=== PATIENT | male | born 1965 | race Caucasian/White ===

== ENCOUNTER 2018-06-01 16:34 | Inpatient (IN) | payer MEDICAID ==
[2018-06-01] MEDS ORDERED: Sodium Chloride 0.9% 10 ML Syringe FLUSH PRN ×2 (16:39→20:39)
[2018-06-01] MEDS ORDERED: Cefepime 2 GM in Sodium Chloride 0.9% 50 ML IV ONE (16:39)
[2018-06-01] MEDS ORDERED: Lactated Ringers 1,000 ML IV ONE ×2 (16:43→19:14)
[2018-06-01] MEDS ORDERED: metroNIDAZOLE/Normal Saline 500 MG in Premix Bag 1 BAG IV ONE (17:34)
--- NOTE | 2018-06-01 17:49 | CRLCR ---
HISTORY: Hypoxia. FINDINGS: Two AP views of the chest are provided. There are no previous studies for comparison. Patchy airspace opacity is seen in the right lower lung suspicious for pneumonia. The upper portion of the right lung and left lung are clear. No evidence for pneumothorax. Cardiac silhouette size is within normal limits. IMPRESSION: Findings suspicious for pneumonia in the right lower lung. Dictated by Jarad Sol MD @ Jun 01 2018 5:46PM Signed by Dr. Jarad Sol @ Jun 01 2018 5:47PM
[2018-06-01] MEDS ORDERED: Sodium Chloride 0.9% 80 ML IV ONE (17:50)
[2018-06-01] MEDS ORDERED: Sodium Chloride 0.9% 10 ML Syringe FLUSH ONE (17:50)
[2018-06-01] MEDS ORDERED: Lactated Ringers 1,000 ML IV SCH (18:00)
[2018-06-01] MEDS ORDERED: Iopamidol 612 MG/ML 100 ML Bottle IV SCH (18:00)
[2018-06-01] MEDS ORDERED: Azithromycin 500 MG in Sodium Chloride 0.9% 250 ML IV ONE (18:41)
--- NOTE | 2018-06-01 19:05 | CRLCT ---
TECHNIQUE: IV contrast-enhanced CT chest, abdomen, and pelvis. 100 mL Isovue-300 injected. INDICATION: Hypotension, sepsis. FINDINGS: Chest: Extensive consolidation in the right lower lobe and areas of patchy consolidation and interstitial density in the right middle lobe and left upper lobe. Findings are compatible with pneumonia. There is diffuse emphysema throughout both lungs. Several mildly prominent, likely reactive mediastinal lymph nodes. Abdomen and pelvis: The gallbladder has an unusual appearance. The woman has slightly higher density than bile and there is a thin rim of higher density within the lumen surrounded by a rind of fluid density. This could either be due to a large stone filling the entire gallbladder or to gallbladder wall mucosal hyperenhancement and thickening. Gallstone is favored. Gallbladder ultrasound is recommended. No biliary dilation. Liver, spleen, pancreas, adrenal glands normal. Prominent extrarenal pelvis in the right kidney, a normal variant. Kidneys are otherwise normal. No bowel obstruction. Mild colonic diverticulosis. No diverticulitis. No adenopathy, free air or free fluid. No abscess. IMPRESSION: 1. Multi focal pneumonia with extensive consolidation of the right lower lobe. 2. Emphysema. 3. Gallbladder wall thickening versus large gallstone. Recommend gallbladder ultrasound for further evaluation. Dictated by Zacarias Pena MD @ 06/01/2018 7:03:03 PM Dictated by: Zacarias Pena MD @ 06/01/2018 19:03:08 (Electronically Signed)
--- NOTE | 2018-06-01 19:15 | EDM.PDOC ---
ED HPI GENERAL MEDICAL PROBLEM - General Chief Complaint: General Stated Complaint: [facility]IA [facility] Time Seen by Provider: 06/01/18 16:50 Source of Information: Reports: Patient History Limitations: Reports: No Limitations - History of Present Illness INITIAL COMMENTS - FREE TEXT/NARRATIVE: 53 yo arrives with concerns of dyspnea Reports symptoms seemingly started suddenly last night, mostly shortness of breath and fever. Did have some RLQ abdominal tenderness as well, not taking much PO Coughing up sputum, no blood EMS found him to be tachycardic and intermittently hypotensive with SBPs in the 80s He is a smoker but no formal diagnosis of COPD Reports he is otherwise healthy Neck Pain Score (Numeric/FACES): 4 - Related Data Allergies Allergy/AdvReac Type Severity Reaction Status Date / Time No Known Allergies Allergy Verified 06/01/18 16:39 Home Meds: Home Meds NK [No Known Home Meds] 06/01/18 [History] Past Medical History HEENT History: Reports: Impaired Vision, Other (See Below) Other HEENT History: broken nose Musculoskeletal History: Reports: Fracture - Past Surgical History Neurological Surgical History: Reports: Other (See Below) Other Neurological Surgeries/Procedures: decompression L4-5, s-1 Social & Family History - Tobacco Use Smoking Status *Q: Heavy Tobacco Smoker Years of Tobacco use: 15 Packs/Tins Daily: 1 - Recreational Drug Use Recreational Drug Use: Yes Recreational Drug Type: Reports: Marijuana/Hashish Recreational Drug Use Frequency: Weekly ED ROS GENERAL - Review of Systems Review Of Systems: See Below Constitutional: Reports: Fever HEENT: Reports: No Symptoms Respiratory: Reports: Shortness of Breath, Cough Cardiovascular: Denies: Chest Pain Endocrine: Reports: No Symptoms GI/Abdominal: Reports: Abdominal Pain : Reports: No Symptoms Musculoskeletal: Reports: No Symptoms Skin: Reports: No Symptoms Neurological: Reports: No Symptoms Psychiatric: Reports: No Symptoms Hematologic/Lymphatic: Reports: No Symptoms Immunologic: Reports: No Symptoms ED EXAM, GENERAL - Physical Exam Exam: See Below Free Text/Narrative:: 53 yo presents with concerns of cough, fever, hypotension Also with RLQ pain, unclear significance of this. On arrival her is somnolent but awakens and offers history. Noted to be persistently hypotensive with SBPs in 70s and 80s. Bedside ECHO performed showed normal EF, no pericardial effusion, no RV enlargement Collapsible IVC Administered 2L IVF bolus for presumed septic shock Broad spectrum anti-microbials including cefepime, flagyl, azithromycin of atypical (? legionella give GI symptoms) Remained with persistently lows BPs (80s), continued fluid resuscitation guided by serial IVC ultrasound. Given continued undifferentiated nature of septic shock obtained CT CAP which showed multifocal pneumonia. He is being admitted to ICU for further management. Course - Vital Signs Last Recorded V/S: Last Vital Signs Temp 37.1 C 06/01/18 16:35 Pulse 97 06/01/18 18:52 Resp 23 H 06/01/18 18:52 BP 79/49 L 06/01/18 18:52 Pulse Ox 96 06/01/18 18:52 - Orders/Labs/Meds Orders: Active Orders 24 hr Category Date Time Status Chest Abdomen Pelvis w Cont [CT] Stat Exams 06/01/18 17:35 Taken CULTURE BLOOD [BC] Urgent Lab 06/01/18 16:50 Received CULTURE BLOOD [BC] Urgent Lab 06/01/18 17:00 Received UA W/MICROSCOPIC [URIN] Stat Lab 06/01/18 17:36 Ordered Azithromycin [Zithromax] 500 mg Med 06/01/18 18:41 Active Sodium Chloride 0.9% [Normal Saline] 250 ml IV ONETIME Iopamidol [Isovue-300 (61%)] Med 06/01/18 18:00 Active 100 ml IV . DIRECTED Lactated Ringers [Ringers, Lactated] 1,000 ml Med 06/01/18 18:00 Active IV BOLUS Sodium Chloride 0.9% [Saline Flush] Med 06/01/18 16:39 Active 10 ml FLUSH ASDIRECTED PRN Blood Culture x2 Reflex Set [OM.PC] Urgent Oth 06/01/18 16:40 Ordered Blood Culture x2 Reflex Set [OM.PC] Urgent Oth 06/01/18 17:54 Ordered Saline Lock Insert [OM.PC] Stat Oth 06/01/18 16:40 Ordered Severe Sepsis Onset Time [OM.PC] Stat Oth 06/01/18 16:40 Ordered Medication Orders Lactated Ringer's (Ringers, Lactated) 1,000 mls @ 999 mls/hr IV BOLUS DANAE Last Admin: 06/01/18 17:50 Dose: 999 mls/hr Azithromycin 500 mg/ Sodium (Chloride) 250 mls @ 250 mls/hr IV ONETIME ONE Stop: 06/01/18 19:40 Iopamidol (Isovue-300 (61%)) 100 ml IV . DIRECTED DANAE Last Admin: 06/01/18 18:18 Dose: 100 ml Sodium Chloride (Saline Flush) 10 ml FLUSH ASDIRECTED PRN PRN Reason: Keep Vein Open Last Admin: 06/01/18 16:55 Dose: 10 ml Labs: Laboratory Tests 06/01/18 06/01/18 06/01/18 Range/Units 16:39 16:40 16:40 WBC 12.7 H (4.5-11.0) K/uL RBC 5.04 (4.30-5.90) M/uL Hgb 15.3 H (12.0-15.0) g/dL Hct 46.2 (40.0-54.0) % MCV 92 (80-98) fL MCH 30 (27-31) pg MCHC 33 (32-36) % Plt Count 242 (150-400) K/uL Add Manual Diff Yes Neutrophils % (Manual) 70 H (36-66) % Band Neutrophils % 18 H (5-11) % Lymphocytes % (Manual) 4 L (24-44) % Monocytes % (Manual) 5 (2-6) % Metamyelocytes % 3 % Sodium 133 L (140-148) mmol/L Potassium 4.6 (3.6-5.2) mmol/L Chloride 101 (100-108) mmol/L Carbon Dioxide 24 (21-32) mmol/L Anion Gap 12.6 (5.0-14.0) mmol/L BUN 18 (7-18) mg/dL Creatinine 1.6 H (0.8-1.3) mg/dL Est Cr Clr Drug Dosing 44.19 mL/min Estimated GFR (MDRD) 45 L (>60) Glucose 122 H (74-106) mg/dL Lactic Acid (0.4-2.0) mmol/L Calcium 7.8 L (8.5-10.1) mg/dL Total Bilirubin 1.6 H (0.2-1.0) mg/dL AST 14 L (15-37) U/L ALT 15 (12-78) U/L Alkaline Phosphatase 77 (46-116) U/L Troponin I < 0.017 (0.000-0.056) ng/mL Total Protein 6.5 (6.4-8.2) g/dL Albumin 2.8 L (3.4-5.0) g/dL Globulin 3.7 H (2.3-3.5) g/dL Albumin/Globulin Ratio 0.8 L (1.2-2.2) 06/01/18 Range/Units 16:40 WBC (4.5-11.0) K/uL RBC (4.30-5.90) M/uL Hgb (12.0-15.0) g/dL Hct (40.0-54.0) % MCV (80-98) fL MCH (27-31) pg MCHC (32-36) % Plt Count (150-400) K/uL Add Manual Diff Neutrophils % (Manual) (36-66) % Band Neutrophils % (5-11) % Lymphocytes % (Manual) (24-44) % Monocytes % (Manual) (2-6) % Metamyelocytes % % Sodium (140-148) mmol/L Potassium (3.6-5.2) mmol/L Chloride (100-108) mmol/L Carbon Dioxide (21-32) mmol/L Anion Gap (5.0-14.0) mmol/L BUN (7-18) mg/dL Creatinine (0.8-1.3) mg/dL Est Cr Clr Drug Dosing mL/min Estimated GFR (MDRD) (>60) Glucose (74-106) mg/dL Lactic Acid 4.1 H (0.4-2.0) mmol/L Calcium (8.5-10.1) mg/dL Total Bilirubin (0.2-1.0) mg/dL AST (15-37) U/L ALT (12-78) U/L Alkaline Phosphatase (46-116) U/L Troponin I (0.000-0.056) ng/mL Total Protein (6.4-8.2) g/dL Albumin (3.4-5.0) g/dL Globulin (2.3-3.5) g/dL Albumin/Globulin Ratio (1.2-2.2) Meds: Medications Generic Name Dose Route Start Last Admin Trade Name Freq PRN Reason Stop Dose Admin Lactated Ringer's 1,000 mls @ 999 mls/hr 03/23/19 18:00 06/01/18 17:50 Ringers, Lactated IV 999 mls/hr BOLUS DANAE Administration Azithromycin 500 mg/ Sodium 250 mls @ 250 mls/hr 06/01/18 18:41 Chloride IV 06/01/18 19:40 ONETIME ONE Iopamidol 100 ml 06/01/18 18:00 06/01/18 18:18 Isovue-300 (61%) IV 100 ml . DIRECTED DANAE Administration Sodium Chloride 10 ml 06/01/18 16:39 06/01/18 16:55 Saline Flush FLUSH 10 ml ASDIRECTED PRN Administration Keep Vein Open Discontinued Medications Generic Name Dose Route Start Last Admin Trade Name Freq PRN Reason Stop Dose Admin Cefepime HCl 2 gm/ Sodium 50 mls @ 100 mls/hr 06/01/18 16:39 06/01/18 16:55 Chloride IV 06/01/18 17:08 100 mls/hr STAT ONE Administration Lactated Ringer's 1,000 mls @ 999 mls/hr 06/01/18 16:43 06/01/18 16:45 Ringers, Lactated IV 06/01/18 17:43 999 mls/hr BOLUS ONE Administration Metronidazole 500 mg/ Premix 100 mls @ 100 mls/hr 06/01/18 17:34 06/01/18 17: 49 IV 06/01/18 18:33 100 mls/hr ONETIME ONE Administration Sodium Chloride 80 mls @ 3.5 mls/sec 06/01/18 17:50 06/01/18 18:18 Normal Saline IV 06/01/18 17:51 3 mls/sec ONETIME ONE Administration Sodium Chloride 10 ml 06/01/18 17:50 06/01/18 18:18 Saline Flush FLUSH 06/01/18 17:51 10 ml ONETIME ONE Administration Departure - Departure Time of Disposition: 19:15 Disposition: Admitted As Inpatient 65 Clinical Impression: Septic shock, Acute hypoxemic respiratory failure, Multifocal pneumonia - Discharge Information Referrals: PCP,None [Primary Care Provider] - Critical Care Note - Critical Care Note Total Time (mins): 45 Comments: Critical care time spent evaluating unstable vital signs and undifferentiated shock, bedside cardiac ECHO, multiple repeat bedside ultrasounds to assess volume status and ongoing hypotension, therapies included IVF bolus and broad spectrum anti-microbials. - My Orders Last 24 Hours: My Active Orders 06/01/18 16:39 Sodium Chloride 0.9% [Saline Flush] 10 ml FLUSH ASDIRECTED PRN 06/01/18 16:40 Blood Culture x2 Reflex Set [OM.PC] Urgent Saline Lock Insert [OM.PC] Stat Severe Sepsis Onset Time [OM.PC] Stat 06/01/18 17:35 Chest Abdomen Pelvis w Cont [CT] Stat 06/01/18 17:36 UA W/MICROSCOPIC [URIN] Stat 06/01/18 18:00 Iopamidol [Isovue-300 (61%)] 100 ml IV . DIRECTED Lactated Ringers [Ringers, Lactated] 1,000 ml IV BOLUS 06/01/18 18:41 Azithromycin [Zithromax] 500 mg Sodium Chloride 0.9% [Normal Saline] 250 ml IV ONETIME - Assessment/Plan Last 24 Hours: My Active Orders 06/01/18 16:39 Sodium Chloride 0.9% [Saline Flush] 10 ml FLUSH ASDIRECTED PRN 06/01/18 16:40 Blood Culture x2 Reflex Set [OM.PC] Urgent Saline Lock Insert [OM.PC] Stat Severe Sepsis Onset Time [OM.PC] Stat 06/01/18 17:35 Chest Abdomen Pelvis w Cont [CT] Stat 06/01/18 17:36 UA W/MICROSCOPIC [URIN] Stat 06/01/18 18:00 Iopamidol [Isovue-300 (61%)] 100 ml IV . DIRECTED Lactated Ringers [Ringers, Lactated] 1,000 ml IV BOLUS 06/01/18 18:41 Azithromycin [Zithromax] 500 mg Sodium Chloride 0.9% [Normal Saline] 250 ml IV ONETIME
[2018-06-01] MEDS ORDERED: Norepinephrine 4 MG/4 ML SDV ONE (20:02)
[2018-06-01] MEDS ORDERED: Dextrose 5% in Water 250 ML ONE (20:02)
[2018-06-01] MEDS: Norepinephrine 4 MG in Dextrose 5% in Water 246 ML IV SCH ×2 (20:19)
--- NOTE | 2018-06-01 20:19 | PCM.HP ---
H&P History of Present Illness - General Date of Service: 06/01/18 Admit Problem/Dx: Admission Diagnosis/Problem Admission Diagnosis/Problem Pneumonia Source of Information: Patient, Provider, RN Notes Reviewed History Limitations: Reports: No Limitations - History of Present Illness Initial Comments - Free Text/Narative: Mr. Shanks is a 53-year-old gentleman who is admitted through the emergency department with weakness, cough, hypoxia, and hypotension secondary to pneumonia with sepsis. He's not felt well over the past 2 weeks and has had intermittent right lower quadrant abdominal pain. The last 24 hours he's developed profound weakness, fever, chills, shortness of breath, and cough. Because of progressive symptoms he presented to the emergency department for further evaluation. On assessment he was found to be hypoxic and hypotensive with systolic pressures into the 70s and 80s. White blood cell count is modestly elevated, lactic acid level elevated at 4.1, and evidence of patchy infiltrates noted in the right lung on chest x-ray. CT scan of the chest abdomen and pelvis showed evidence of patchy infiltrates in the lungs as well as possible gallbladder disease. Blood cultures have been obtained and he has received vigorous fluid replacement per sepsis protocol. Despite fluid replacement blood pressures have remained borderline. Oxygen saturations improved initially with low level of supplemental oxygen at 2 L/m via nasal cannula. As he is been in the emergency department he's required higher levels of supplemental oxygen and now has borderline oxygen saturations on 5 L of oxygen via nasal cannula. Antibiotic therapy has been initiated, he received cefepime, metronidazole, and azithromycin. Neck Pain Score (Numeric/FACES): 4 - Related Data Allergies/Adverse Reactions: Allergies Allergy/AdvReac Type Severity Reaction Status Date / Time No Known Allergies Allergy Verified 06/01/18 16:39 Home Medications: Home Meds NK [No Known Home Meds] 06/01/18 [History] Past Medical History HEENT History: Reports: Impaired Vision, Other (See Below) Other HEENT History: broken nose Musculoskeletal History: Reports: Fracture - Past Surgical History Neurological Surgical History: Reports: Other (See Below) Other Neurological Surgeries/Procedures: decompression L4-5, s-1 Social & Family History - Tobacco Use Smoking Status *Q: Heavy Tobacco Smoker Years of Tobacco use: 15 Packs/Tins Daily: 1 - Recreational Drug Use Recreational Drug Use: Yes Recreational Drug Type: Reports: Marijuana/Hashish Recreational Drug Use Frequency: Weekly H&P Review of Systems - Review of Systems: Review Of Systems: See Below General: Reports: Fever, Chills, Malaise, Weakness, Diaphoresis, Decreased Appetite HEENT: Reports: No Symptoms Pulmonary: Reports: Shortness of Breath, Cough, Sputum, Hemoptysis. Denies: Wheezing, Pleuritic Chest Pain Cardiovascular: Reports: Dyspnea on Exertion, Lightheadedness. Denies: Chest Pain, Palpitations, Orthopnea, PND, Edema, Syncope Gastrointestinal: Reports: Abdominal Pain, Decreased Appetite. Denies: Black Stool, Bloody Stool, Constipation, Diarrhea, Difficulty Swallowing, Distension, Nausea, Vomiting Genitourinary: Reports: No Symptoms Musculoskeletal: Reports: No Symptoms Skin: Reports: No Symptoms Psychiatric: Reports: No Symptoms Neurological: Reports: No Symptoms Hematologic/Lymphatic: Reports: No Symptoms Immunologic: Reports: No Symptoms Exam - Exam Exam: See Below - Vital Signs Vital Signs: Last Vital Signs Temp 98.8 F 06/01/18 16:35 Pulse 100 06/01/18 19:30 Resp 24 H 06/01/18 19:30 BP 87/55 L 06/01/18 19:30 Pulse Ox 89 L 06/01/18 19:47 Weight: 220 lb - Exam Quality Assessment: Supplemental Oxygen, DVT Prophylaxis General: Alert, Oriented, Cooperative, Moderate Distress HEENT: Conjunctiva Clear, Hearing Intact, Mucosa Moist & [place], Normal Nasal Septum, Posterior Pharynx Clear, Pupils Equal Neck: Supple, Trachea Midline, +2 Carotid Pulse wo Bruit Lungs: Decreased Breath Sounds, Crackles, Rhonchi. No: Rales, Rub, Wheezing Cardiovascular: Regular Rhythm, Normal S1, Normal S2, Tachycardia. No: Systolic Murmur, Diastolic Murmur GI/Abdominal Exam: Soft, No Organomegaly, Tender. No: Distended, Guarding, Rigid, Rebound Back Exam: Normal Inspection, Full Range of Motion Extremities: Non-Tender, No Pedal Edema Skin: Warm, Dry, Intact Neurological: Cranial Nerves Intact, Strength Equal Bilateral, Normal Speech, Normal Tone, Sensation Intact. No: Focal Deficit Neuro Extensive - Mental Status: Alert, Oriented x3, Normal Mood/Affect, Normal Cognition, Memory Intact - Patient Data Lab Results Last 24 hrs: Laboratory Results - last 24 hr 06/01/18 06/01/18 06/01/18 Range/Units 16:39 16:40 16:40 WBC 12.7 H (4.5-11.0) K/uL RBC 5.04 (4.30-5.90) M/uL Hgb 15.3 H (12.0-15.0) g/dL Hct 46.2 (40.0-54.0) % MCV 92 (80-98) fL MCH 30 (27-31) pg MCHC 33 (32-36) % Plt Count 242 (150-400) K/uL Add Manual Diff Yes Neutrophils % (Manual) 70 H (36-66) % Band Neutrophils % 18 H (5-11) % Lymphocytes % (Manual) 4 L (24-44) % Monocytes % (Manual) 5 (2-6) % Metamyelocytes % 3 % Sodium 133 L (140-148) mmol/L Potassium 4.6 (3.6-5.2) mmol/L Chloride 101 (100-108) mmol/L Carbon Dioxide 24 (21-32) mmol/L Anion Gap 12.6 (5.0-14.0) mmol/L BUN 18 (7-18) mg/dL Creatinine 1.6 H (0.8-1.3) mg/dL Est Cr Clr Drug Dosing 44.19 mL/min Estimated GFR (MDRD) 45 L (>60) Glucose 122 H (74-106) mg/dL Lactic Acid (0.4-2.0) mmol/L Calcium 7.8 L (8.5-10.1) mg/dL Total Bilirubin 1.6 H (0.2-1.0) mg/dL AST 14 L (15-37) U/L ALT 15 (12-78) U/L Alkaline Phosphatase 77 (46-116) U/L Troponin I < 0.017 (0.000-0.056) ng/mL Total Protein 6.5 (6.4-8.2) g/dL Albumin 2.8 L (3.4-5.0) g/dL Globulin 3.7 H (2.3-3.5) g/dL Albumin/Globulin Ratio 0.8 L (1.2-2.2) 06/01/18 Range/Units 16:40 WBC (4.5-11.0) K/uL RBC (4.30-5.90) M/uL Hgb (12.0-15.0) g/dL Hct (40.0-54.0) % MCV (80-98) fL MCH (27-31) pg MCHC (32-36) % Plt Count (150-400) K/uL Add Manual Diff Neutrophils % (Manual) (36-66) % Band Neutrophils % (5-11) % Lymphocytes % (Manual) (24-44) % Monocytes % (Manual) (2-6) % Metamyelocytes % % Sodium (140-148) mmol/L Potassium (3.6-5.2) mmol/L Chloride (100-108) mmol/L Carbon Dioxide (21-32) mmol/L Anion Gap (5.0-14.0) mmol/L BUN (7-18) mg/dL Creatinine (0.8-1.3) mg/dL Est Cr Clr Drug Dosing mL/min Estimated GFR (MDRD) (>60) Glucose (74-106) mg/dL Lactic Acid 4.1 H (0.4-2.0) mmol/L Calcium (8.5-10.1) mg/dL Total Bilirubin (0.2-1.0) mg/dL AST (15-37) U/L ALT (12-78) U/L Alkaline Phosphatase (46-116) U/L Troponin I (0.000-0.056) ng/mL Total Protein (6.4-8.2) g/dL Albumin (3.4-5.0) g/dL Globulin (2.3-3.5) g/dL Albumin/Globulin Ratio (1.2-2.2) Result Diagrams: 06/01/18 16:40 06/01/18 16:40 Howard Results Last 24 hrs: Microbiology 06/01/18 16:52 Influenza Type A Antigen Screen - Final Nasopharyngeal Swab NEGATIVE INFLUENZA A VIRUS AG Influenza Type B Antigen Screen - Final NEGATIVE INFLUENZA B VIRUS AG *Q Meaningful Use (ADM) - VTE Risk Assess *Q Each Risk Factor Represents 1 Point: Age 41 - 59 years, Obesity ( BMI > 25 kg/m2 ), Serious lung disease including pneumonia, Abnormal Pulmonary Function (COPD) Total Score 1 Point Risk Factors: 4 Each Risk Factor Represents 2 Points: None Total Score 2 Point Risk Factors: 0 Each Risk Factor Represents 3 Points: None Total Score 3 Point Risk Factors: 0 Each Risk Factor Represents 5 Points: None Total Score 5 Point Risk Factors: 0 Venous Thromboembolism Risk Factor Score *Q: 4 Problem List Initiated/Reviewed/Updated: Yes Orders Last 24hrs: Active Orders 24 hr Category Date Time Status Patient Status Manage Transfer [TRANSFER] Routine ADT 06/01/18 19:56 Ordered CULTURE BLOOD [BC] Urgent Lab 06/01/18 16:50 Received CULTURE BLOOD [BC] Urgent Lab 06/01/18 17:00 Received UA W/MICROSCOPIC [URIN] Stat Lab 06/01/18 17:36 Ordered Iopamidol [Isovue-300 (61%)] Med 06/01/18 18:00 Active 100 ml IV . DIRECTED Lactated Ringers [Ringers, Lactated] 1,000 ml Med 06/01/18 18:00 Active IV BOLUS Lactated Ringers [Ringers, Lactated] 1,000 ml Med 06/01/18 19:14 Active IV BOLUS Sodium Chloride 0.9% [Saline Flush] Med 06/01/18 16:39 Active 10 ml FLUSH ASDIRECTED PRN Blood Culture x2 Reflex Set [OM.PC] Urgent Oth 06/01/18 16:40 Ordered Blood Culture x2 Reflex Set [OM.PC] Urgent Oth 06/01/18 17:54 Ordered Saline Lock Insert [OM.PC] Stat Oth 06/01/18 16:40 Ordered Severe Sepsis Onset Time [OM.PC] Stat Oth 06/01/18 16:40 Ordered Resuscitation Status Routine Resus Stat 06/01/18 19:58 Ordered Medication Orders Lactated Ringer's (Ringers, Lactated) 1,000 mls @ 999 mls/hr IV BOLUS [facility] Last Admin: 06/01/18 17:50 Dose: 999 mls/hr Lactated Ringer's (Ringers, Lactated) 1,000 mls @ 500 mls/hr IV BOLUS ONE Stop: 06/01/18 21:13 Last Admin: 06/01/18 19:18 Dose: 500 mls/hr Iopamidol (Isovue-300 (61%)) 100 ml IV . DIRECTED [facility] Last Admin: 06/01/18 18:18 Dose: 100 ml Sodium Chloride (Saline Flush) 10 ml FLUSH ASDIRECTED PRN PRN Reason: Keep Vein Open Last Admin: 06/01/18 16:55 Dose: 10 ml Assessment/Plan Comment:: ASSESSMENT AND PLAN BILATERAL PNEUMONIA WITH [id number] history of fever, progressive weakness, shortness of breath, and cough. Hypotensive, tachycardic, and hypoxic on initial presentation. Elevation in lactic acid level at 4.1. CT scan of the chest shows evidence of bilateral pneumonia, worse on the right. Persistent hypotension, mild tachycardia and hypoxia despite current interventions. -Blood cultures and sputum cultures pending -LR at 125 mL/h -Initiate norepinephrine infusion because of persistent hypotension -Solu-Cortef 100 mg IV every 8 hours 3 doses -IV Zosyn and levofloxacin, pending culture results HYPOXIC RESPIRATORY FAILURE-secondary to bilateral pneumonia and sepsis. Probable component of underlying COPD, [id number] smoking history. Persistent hypoxia and has required increased levels of supplemental oxygen while in the emergency department. -Supplemental oxygen as needed -Nebulized albuterol -ABGs now and in a.m. -Noninvasive positive pressure ventilation POSSIBLE GALLBLADDER DISEASE-possible gallbladder wall thickening suggested on CT scan -Ultrasound in a.m. -Current antibiotic therapy should provide adequate coverage for possible gallbladder infection MAINTENANCE ISSUES -DVT prophylaxis; Lovenox 40 mg subcutaneous daily -GI prophylaxis; Protonix 40 mg IV daily -Weiss catheter; not indicated -Nutrition; regular diet -Nicotine dependence; 21 mg nicotinic patch CODE STATUS-FULL CODE ADMISSION STATUS-patient will be admitted to inpatient status, expect at least a 2 night hospital stay for evaluation and management of problems as outlined above. At the time of this admission I do not reasonably expected evaluation and management of this problem will require more than a 96 hour hospital stay. DISPOSITION-anticipate discharge to home after the hospital stay. PRIMARY CARE PROVIDER-
[2018-06-01] MEDS ORDERED: Albuterol 0.083% 2.5 MG/3 ML Neb Soln NEB PRN (20:39)
[2018-06-01] MEDS ORDERED: Levofloxacin/Dextrose 5%-Water 750 MG in Premix Bag 1 BAG IV SCH ×2 (20:39→22:00)
[2018-06-01] MEDS ORDERED: Polyethylene Glycol 3350 Powder 17 GM Packet PO PRN (20:39)
[2018-06-01] MEDS ORDERED: Ondansetron 4 MG/2 ML SDV IV PRN (20:39)
[2018-06-01] MEDS: Lactated Ringers 1,000 ML IV SCH (21:11)
[2018-06-01] MEDS ORDERED: Sodium Chloride 0.9% 100 ML ONE (21:37)
[2018-06-01] MEDS: Hydrocortisone Sodium Succinate 100 MG/2 ML SDV IVPUSH SCH (21:38)
[2018-06-01] MEDS: Piperacillin/Tazobactam 4.5 GM in Sodium Chloride 0.9% 100 ML IV SCH (21:44)
[2018-06-01] MEDS: Pantoprazole 40 MG Vial IVPUSH SCH (21:58)
[2018-06-01] MEDS: Enoxaparin 40 MG/0.4 ML Syringe SUBCUT SCH (22:00)
[2018-06-01] MEDS: Nicotine 21 MG/24 Hr Patch TRDERM SCH (22:03)
[2018-06-02] MEDS ORDERED: Piperacillin/Tazobactam 4.5 GM Vial ONE (02:56)
[2018-06-02] MEDS ORDERED: Sodium Chloride 0.9% 100 ML ONE (02:57)
[2018-06-02] MEDS: Piperacillin/Tazobactam 4.5 GM in Sodium Chloride 0.9% 100 ML IV SCH (03:14)
[2018-06-02] MEDS: Hydrocortisone Sodium Succinate 100 MG/2 ML SDV IVPUSH SCH ×2 (04:49→12:20)
[2018-06-02] MEDS: Lactated Ringers 1,000 ML IV SCH (05:32)
[2018-06-02] MEDS: Norepinephrine 4 MG in Dextrose 5% in Water 246 ML IV SCH ×2 (05:38)
[2018-06-02] MEDS ORDERED: Levofloxacin/Dextrose 5%-Water 750 MG in Premix Bag 1 BAG IV SCH (07:15)
[2018-06-02] MEDS ORDERED: Vancomycin 2 GM in Sodium Chloride 0.9% 500 ML IV ONE (08:00)
[2018-06-02] MEDS ORDERED: Vancomycin 1 GM SDV IV SCH (08:00)
[2018-06-02] MEDS: Nicotine 21 MG/24 Hr Patch TRDERM SCH (08:03)
--- NOTE | 2018-06-02 08:56 | CRLUS ---
INDICATION: Possible cholecystitis on CT yesterday. TECHNIQUE: Abdominal limited ultrasound. COMPARISON: Yesterday`s CT. FINDINGS: Pancreas where seen is grossly normal. Abdominal aorta normal in caliber. Mild diffuse fatty infiltration of the liver. This is patchy. No focal masses in the liver. Probable focal fatty sparing adjacent to gallbladder fossa. The main portal vein is patent with hepatopetal flow. The common bile duct measures 5-6 mm which is normal. Heterogeneous gallbladder wall thickening between the liver and gallbladder measures up to 1 cm. There appears to be edema or fluid in the gallbladder wall. Given that this is segmental, this gallbladder wall thickening is indeterminate. Cannot exclude gallbladder wall edema or acalculous cholecystitis or differentiate these etiologies from other infiltrative masslike process. No evidence for stones or sludge in the gallbladder. No sonographic Dozier`s sign. Right kidney measures 12.2 cm and is negative for hydronephrosis. The right renal pelvis is markedly dilated however. This may be a chronic finding correlates with the changes on CT. Remainder negative. IMPRESSION: 1. Marked heterogeneous gallbladder wall thickening especially between the gallbladder and liver with fluid within the wall of the gallbladder. Findings could be related to gallbladder wall edema or acalculous cholecystitis but cannot exclude a infiltrative masslike process which would be less likely. No stones or sludge in the gallbladder. Findings correlate with findings on CT. 2. Common bile duct upper limits normal. 3. Mild fatty infiltration of liver with focal fatty sparing adjacent to gallbladder. 4. Right renal pelvis is markedly dilated and this is stable and likely related to chronic etiology. Other findings as above. Dictated by Hussain Kidd MD @ Jun 02 2018 8:54AM Signed by Dr. Hussain Kidd @ Jun 02 2018 8:55AM
[2018-06-02] MEDS: Magnesium Sulfate/Water 2 GM in Premix Bag 1 BAG IV SCH ×3 (09:02→21:09)
[2018-06-02] MEDS: Magnesium Oxide 400 MG Tab PO SCH ×2 (09:02→21:09)
[2018-06-02] MEDS ORDERED: Lactated Ringers 1,000 ML IV SCH (09:15)
--- NOTE | 2018-06-02 09:21 | PCM.PN ---
- General Info Date of Service: 06/02/18 Subjective Update: Mr. Shanks has improved significantly through the night, he was significantly hypotensive and required use of IV norepinephrine because of hypotension. Blood pressures improved this morning and he is almost off of the norepinephrine. He did use noninvasive positive pressure ventilation through the night, currently has good oxygenation on supplemental oxygen via nasal cannula. He feels somewhat improved and denies significant pain. Ultrasound of the right upper quadrant was obtained this morning does show gallbladder wall thickening consistent with cholecystitis. Functional Status: Reports: Pain Controlled, Tolerating Diet, Urinating - Review of Systems General: Reports: Fever, Weakness, Chills Pulmonary: Reports: Shortness of Breath, Cough, Sputum. Denies: Pleuritic Chest Pain, Hemoptysis, Wheezing Cardiovascular: Reports: Dyspnea on Exertion. Denies: Chest Pain, Palpitations , Orthopnea, PND, Edema, Lightheadedness Gastrointestinal: Reports: Abdominal Pain, Decreased Appetite. Denies: Diarrhea , Difficulty Swallowing, Nausea, Vomiting - Patient Data Vitals - Most Recent: Last Vital Signs Temp 97.6 F 06/02/18 08:00 Pulse 92 06/02/18 08:59 Resp 19 06/02/18 08:59 BP 119/68 06/02/18 08:59 Pulse Ox 98 06/02/18 08:59 Weight - Most Recent: 220 lb 4.8 oz I&O - Last 24 Hours: Intake & Output 06/01/18 06/02/18 06/02/18 22:59 06:59 14:59 Intake Total 2919 2923 Output Total 600 Balance 2919 2323 Lab Results Last 24 Hours: Laboratory Results - last 24 hr 06/01/18 06/01/18 06/01/18 Range/Units 16:39 16:40 16:40 WBC 12.7 H (4.5-11.0) K/uL RBC 5.04 (4.30-5.90) M/uL Hgb 15.3 H (12.0-15.0) g/dL Hct 46.2 (40.0-54.0) % MCV 92 (80-98) fL MCH 30 (27-31) pg MCHC 33 (32-36) % Plt Count 242 (150-400) K/uL Add Manual Diff Yes Neutrophils % (Manual) 70 H (36-66) % Band Neutrophils % 18 H (5-11) % Lymphocytes % (Manual) 4 L (24-44) % Monocytes % (Manual) 5 (2-6) % Metamyelocytes % 3 % Puncture Site ABG pH (7.350-7.450) ABG pCO2 (35.0-42.0) mmHg ABG pO2 (75.0-100.0) mmHg ABG HCO3 (22.0-26.0) mmol/L ABG Total CO2 (23.0-27.0) mmol/L ABG O2 Saturation (95.0-98.0) % ABG O2 Content (15.0-23.0) %vol ABG Base Excess mm/L ABG Hemoglobin (13.5-18.0) g/dL ABG Oxyhemoglobin % ABG Carboxyhemoglobin (0.0-1.6) % ABG Methemoglobin % Lalo Test O2 Delivery Device Oxygen Flow Rate L Sodium 133 L (140-148) mmol/L Potassium 4.6 (3.6-5.2) mmol/L Chloride 101 (100-108) mmol/L Carbon Dioxide 24 (21-32) mmol/L Anion Gap 12.6 (5.0-14.0) mmol/L BUN 18 (7-18) mg/dL Creatinine 1.6 H (0.8-1.3) mg/dL Est Cr Clr Drug Dosing 44.19 mL/min Estimated GFR (MDRD) 45 L (>60) Glucose 122 H (74-106) mg/dL Lactic Acid (0.4-2.0) mmol/L Calcium 7.8 L (8.5-10.1) mg/dL Magnesium (1.8-2.4) mg/dL Total Bilirubin 1.6 H (0.2-1.0) mg/dL AST 14 L (15-37) U/L ALT 15 (12-78) U/L Alkaline Phosphatase 77 (46-116) U/L Troponin I < 0.017 (0.000-0.056) ng/mL Total Protein 6.5 (6.4-8.2) g/dL Albumin 2.8 L (3.4-5.0) g/dL Globulin 3.7 H (2.3-3.5) g/dL Albumin/Globulin Ratio 0.8 L (1.2-2.2) Urine Color Urine Appearance Urine pH (4.5-8.0) Ur Specific Braman (1.008-1.030) Urine Protein (NEGATIVE) mg/dL Urine Glucose (UA) (NEGATIVE) mg/dL Urine Ketones (NEGATIVE) mg/dL Urine Occult Blood (NEGATIVE) Urine Nitrite (NEGAITVE) Urine Bilirubin (NEGATIVE) Urine Urobilinogen (NORMAL) mg/dL Ur Leukocyte Esterase (NEGATIVE) Urine RBC (0-5) Urine WBC (0-5) Ur Epithelial Cells Amorphous Sediment Urine Bacteria Urine Mucus 06/01/18 06/01/18 06/01/18 Range/Units 16:40 20:19 23:00 WBC (4.5-11.0) K/uL RBC (4.30-5.90) M/uL Hgb (12.0-15.0) g/dL Hct (40.0-54.0) % MCV (80-98) fL MCH (27-31) pg MCHC (32-36) % Plt Count (150-400) K/uL Add Manual Diff Neutrophils % (Manual) (36-66) % Band Neutrophils % (5-11) % Lymphocytes % (Manual) (24-44) % Monocytes % (Manual) (2-6) % Metamyelocytes % % Puncture Site Rt radial ABG pH 7.349 L (7.350-7.450) ABG pCO2 36.2 (35.0-42.0) mmHg ABG pO2 79.2 (75.0-100.0) mmHg ABG HCO3 19.4 L (22.0-26.0) mmol/L ABG Total CO2 17.3 L (23.0-27.0) mmol/L ABG O2 Saturation 94.6 L (95.0-98.0) % ABG O2 Content 18.4 (15.0-23.0) %vol ABG Base Excess -5.1 mm/L ABG Hemoglobin 14.1 (13.5-18.0) g/dL ABG Oxyhemoglobin 92.5 % ABG Carboxyhemoglobin 1.5 (0.0-1.6) % ABG Methemoglobin 0.7 % Lalo Test Passed O2 Delivery Device Nasal cannula Oxygen Flow Rate L Sodium (140-148) mmol/L Potassium (3.6-5.2) mmol/L Chloride (100-108) mmol/L Carbon Dioxide (21-32) mmol/L Anion Gap (5.0-14.0) mmol/L BUN (7-18) mg/dL Creatinine (0.8-1.3) mg/dL Est Cr Clr Drug Dosing mL/min Estimated GFR (MDRD) (>60) Glucose (74-106) mg/dL Lactic Acid 4.1 H 3.7 H (0.4-2.0) mmol/L Calcium (8.5-10.1) mg/dL Magnesium (1.8-2.4) mg/dL Total Bilirubin (0.2-1.0) mg/dL AST (15-37) U/L ALT (12-78) U/L Alkaline Phosphatase (46-116) U/L Troponin I (0.000-0.056) ng/mL Total Protein (6.4-8.2) g/dL Albumin (3.4-5.0) g/dL Globulin (2.3-3.5) g/dL Albumin/Globulin Ratio (1.2-2.2) Urine Color Urine Appearance Urine pH (4.5-8.0) Ur Specific Braman (1.008-1.030) Urine Protein (NEGATIVE) mg/dL Urine Glucose (UA) (NEGATIVE) mg/dL Urine Ketones (NEGATIVE) mg/dL Urine Occult Blood (NEGATIVE) Urine Nitrite (NEGAITVE) Urine Bilirubin (NEGATIVE) Urine Urobilinogen (NORMAL) mg/dL Ur Leukocyte Esterase (NEGATIVE) Urine RBC (0-5) Urine WBC (0-5) Ur Epithelial Cells Amorphous Sediment Urine Bacteria Urine Mucus 06/02/18 06/02/18 06/02/18 Range/Units 01:26 05:00 05:00 WBC (4.5-11.0) K/uL RBC (4.30-5.90) M/uL Hgb (12.0-15.0) g/dL Hct (40.0-54.0) % MCV (80-98) fL MCH (27-31) pg MCHC (32-36) % Plt Count (150-400) K/uL Add Manual Diff Neutrophils % (Manual) (36-66) % Band Neutrophils % (5-11) % Lymphocytes % (Manual) (24-44) % Monocytes % (Manual) (2-6) % Metamyelocytes % % Puncture Site Rt radial ABG pH 7.409 (7.350-7.450) ABG pCO2 34.9 L (35.0-42.0) mmHg ABG pO2 75.9 (75.0-100.0) mmHg ABG HCO3 21.6 L (22.0-26.0) mmol/L ABG Total CO2 19.1 L (23.0-27.0) mmol/L ABG O2 Saturation 95.1 (95.0-98.0) % ABG O2 Content 18.0 (15.0-23.0) %vol ABG Base Excess -1.9 mm/L ABG Hemoglobin 13.7 (13.5-18.0) g/dL ABG Oxyhemoglobin 93.2 % ABG Carboxyhemoglobin 1.3 (0.0-1.6) % ABG Methemoglobin 0.7 % Lalo Test Passed O2 Delivery Device Bipap Oxygen Flow Rate 2 L Sodium (140-148) mmol/L Potassium (3.6-5.2) mmol/L Chloride (100-108) mmol/L Carbon Dioxide (21-32) mmol/L Anion Gap (5.0-14.0) mmol/L BUN (7-18) mg/dL Creatinine (0.8-1.3) mg/dL Est Cr Clr Drug Dosing mL/min Estimated GFR (MDRD) (>60) Glucose (74-106) mg/dL Lactic Acid 2.4 H (0.4-2.0) mmol/L Calcium (8.5-10.1) mg/dL Magnesium (1.8-2.4) mg/dL Total Bilirubin (0.2-1.0) mg/dL AST (15-37) U/L ALT (12-78) U/L Alkaline Phosphatase (46-116) U/L Troponin I (0.000-0.056) ng/mL Total Protein (6.4-8.2) g/dL Albumin (3.4-5.0) g/dL Globulin (2.3-3.5) g/dL Albumin/Globulin Ratio (1.2-2.2) Urine Color Other Urine Appearance Clear Urine pH 5.0 (4.5-8.0) Ur Specific Braman 1.020 (1.008-1.030) Urine Protein Negative (NEGATIVE) mg/dL Urine Glucose (UA) Normal (NEGATIVE) mg/dL Urine Ketones 15 H (NEGATIVE) mg/dL Urine Occult Blood Large (NEGATIVE) Urine Nitrite Negative (NEGAITVE) Urine Bilirubin Negative (NEGATIVE) Urine Urobilinogen Normal (NORMAL) mg/dL Ur Leukocyte Esterase Negative (NEGATIVE) Urine RBC 5-10 H (0-5) Urine WBC Not seen (0-5) Ur Epithelial Cells Not seen Amorphous Sediment Not seen Urine Bacteria Not seen Urine Mucus Many 06/02/18 06/02/18 Range/Units 05:11 05:18 WBC 18.2 H (4.5-11.0) K/uL RBC 4.41 (4.30-5.90) M/uL Hgb 13.5 (12.0-15.0) g/dL Hct 40.5 (40.0-54.0) % MCV 92 (80-98) fL MCH 31 (27-31) pg MCHC 33 (32-36) % Plt Count 223 (150-400) K/uL Add Manual Diff Yes Neutrophils % (Manual) 85 H (36-66) % Band Neutrophils % 8 (5-11) % Lymphocytes % (Manual) 5 L (24-44) % Monocytes % (Manual) 2 (2-6) % Metamyelocytes % % Puncture Site ABG pH (7.350-7.450) ABG pCO2 (35.0-42.0) mmHg ABG pO2 (75.0-100.0) mmHg ABG HCO3 (22.0-26.0) mmol/L ABG Total CO2 (23.0-27.0) mmol/L ABG O2 Saturation (95.0-98.0) % ABG O2 Content (15.0-23.0) %vol ABG Base Excess mm/L ABG Hemoglobin (13.5-18.0) g/dL ABG Oxyhemoglobin % ABG Carboxyhemoglobin (0.0-1.6) % ABG Methemoglobin % Lalo Test O2 Delivery Device Oxygen Flow Rate L Sodium 134 L (140-148) mmol/L Potassium 4.4 (3.6-5.2) mmol/L Chloride 101 (100-108) mmol/L Carbon Dioxide 22 (21-32) mmol/L Anion Gap 15.4 H (5.0-14.0) mmol/L BUN 19 H (7-18) mg/dL Creatinine 1.1 (0.8-1.3) mg/dL Est Cr Clr Drug Dosing 64.28 mL/min Estimated GFR (MDRD) > 60 (>60) Glucose 116 H (74-106) mg/dL Lactic Acid (0.4-2.0) mmol/L Calcium 7.7 L (8.5-10.1) mg/dL Magnesium 1.3 L (1.8-2.4) mg/dL Total Bilirubin 1.2 H (0.2-1.0) mg/dL AST 14 L (15-37) U/L ALT 15 (12-78) U/L Alkaline Phosphatase 59 (46-116) U/L Troponin I (0.000-0.056) ng/mL Total Protein 5.7 L (6.4-8.2) g/dL Albumin 2.3 L (3.4-5.0) g/dL Globulin 3.4 (2.3-3.5) g/dL Albumin/Globulin Ratio 0.7 L (1.2-2.2) Urine Color Urine Appearance Urine pH (4.5-8.0) Ur Specific Braman (1.008-1.030) Urine Protein (NEGATIVE) mg/dL Urine Glucose (UA) (NEGATIVE) mg/dL Urine Ketones (NEGATIVE) mg/dL Urine Occult Blood (NEGATIVE) Urine Nitrite (NEGAITVE) Urine Bilirubin (NEGATIVE) Urine Urobilinogen (NORMAL) mg/dL Ur Leukocyte Esterase (NEGATIVE) Urine RBC (0-5) Urine WBC (0-5) Ur Epithelial Cells Amorphous Sediment Urine Bacteria Urine Mucus Howard Results Last 24 Hours: Microbiology 06/01/18 16:50 Aerobic Blood Culture - Preliminary Blood - Venous - Iv Start 06/02/18 01:27 Gram Stain - Final Sputum - Expectorated 06/01/18 16:52 Influenza Type A Antigen Screen - Final Nasopharyngeal Swab NEGATIVE INFLUENZA A VIRUS AG Influenza Type B Antigen Screen - Final NEGATIVE INFLUENZA B VIRUS AG Med Orders - Current: Current Medications Acetaminophen (Tylenol) 650 mg PO Q4H PRN PRN Reason: Pain (Mild 1-3)/fever Albuterol (Proventil Neb Soln) 2.5 mg NEB Q4H PRN PRN Reason: Shortness Of Breath/wheezing Enoxaparin Sodium (Lovenox) 40 mg SUBCUT BEDTIME [facility] Last Admin: 06/01/18 22:00 Dose: 40 mg Hydrocortisone Sodium Succinate (Solu-Cortef) 100 mg IVPUSH Q8H [facility] Stop: 06/02/18 13:01 Last Admin: 06/02/18 04:49 Dose: 100 mg Norepinephrine Bitartrate 4 mg (/ Dextrose/Water) 250 mls @ 7.5 mls/hr IV TITRATE [facility]; Protocol Last Titration: 06/02/18 08:15 Dose: 2 mcg/min, 7.5 mls/hr Levofloxacin/Dextrose 750 mg/ (Premix) 150 mls @ 100 mls/hr IV Q24H [facility] Piperacillin/Tazobactam/ (Dextrose 4.5 gm/ Premix) 100 mls @ 200 mls/hr IV Q6H [facility] Vancomycin HCl 2 gm/ Sodium (Chloride) 500 mls @ 250 mls/hr IV ONETIME ONE Stop: 06/02/18 09:59 Last Admin: 06/02/18 08:04 Dose: 250 mls/hr Vancomycin HCl 1.5 gm/ Sodium (Chloride) 250 mls @ 167 mls/hr IV Q12H [facility] Magnesium Sulfate 2 gm/ Premix 50 mls @ 25 mls/hr IV Q6H [facility] Stop: 06/02/18 22:59 Last Admin: 06/02/18 09:02 Dose: 25 mls/hr Lactated Ringer's (Ringers, Lactated) 1,000 mls @ 75 mls/hr IV ASDIRECTED [facility] Magnesium Oxide (Magnesium Oxide) 400 mg PO BID [facility] Last Admin: 06/02/18 09:02 Dose: 400 mg Nicotine (Habitrol) 21 mg TRDERM DAILY [facility] Last Admin: 06/02/18 08:03 Dose: Not Given Ondansetron HCl (Zofran) 4 mg IV Q4H PRN PRN Reason: Nausea/Vomiting Pantoprazole Sodium (Protonix Iv) 40 mg IVPUSH Q24H [facility] Last Admin: 06/01/18 21:58 Dose: 40 mg Polyethylene Glycol (Miralax) 17 gm PO DAILY PRN PRN Reason: Constipation Sodium Chloride (Saline Flush) 10 ml FLUSH ASDIRECTED PRN PRN Reason: Keep Vein Open Discontinued Medications Cefepime HCl 2 gm/ Sodium (Chloride) 50 mls @ 100 mls/hr IV STAT ONE Stop: 06/01/18 17:08 Last Admin: 06/01/18 16:55 Dose: 100 mls/hr Lactated Ringer's (Ringers, Lactated) 1,000 mls @ 999 mls/hr IV BOLUS ONE Stop: 06/01/18 17:43 Last Admin: 06/01/18 16:45 Dose: 999 mls/hr Metronidazole 500 mg/ Premix 100 mls @ 100 mls/hr IV ONETIME ONE Stop: 06/01/18 18:33 Last Admin: 06/01/18 17:49 Dose: 100 mls/hr Lactated Ringer's (Ringers, Lactated) 1,000 mls @ 999 mls/hr IV BOLUS [facility] Last Admin: 06/01/18 17:50 Dose: 999 mls/hr Sodium Chloride (Normal Saline) 80 mls @ 3.5 mls/sec IV ONETIME ONE Stop: 06/01/18 17:51 Last Admin: 06/01/18 18:18 Dose: 3 mls/sec Azithromycin 500 mg/ Sodium (Chloride) 250 mls @ 250 mls/hr IV ONETIME ONE Stop: 06/01/18 19:40 Last Admin: 06/01/18 19:06 Dose: 250 mls/hr Lactated Ringer's (Ringers, Lactated) 1,000 mls @ 500 mls/hr IV BOLUS ONE Stop: 06/01/18 21:13 Last Admin: 06/01/18 19:18 Dose: 500 mls/hr Dextrose/Water (Dextrose 5% In Water) Confirm Administered Dose 250 mls @ as directed .ROUTE .STK-MED ONE Stop: 06/01/18 20:03 Lactated Ringer's (Ringers, Lactated) 1,000 mls @ 125 mls/hr IV ASDIRECTED [facility] Last Admin: 06/02/18 05:32 Dose: 125 mls/hr Piperacillin Sod/Tazobactam (Sod 4.5 gm/ Sodium Chloride) 100 mls @ 200 mls/hr IV Q6H [facility] Last Admin: 06/02/18 03:14 Dose: 200 mls/hr Levofloxacin/Dextrose 750 mg/ (Premix) 150 mls @ 100 mls/hr IV Q48H [facility] Last Admin: 06/01/18 22:06 Dose: 100 mls/hr Sodium Chloride (Normal Saline) Confirm Administered Dose 100 mls @ as directed .ROUTE .STK-MED ONE Stop: 06/01/18 21:38 Last Admin: 06/01/18 21:49 Dose: 100 mls/hr Sodium Chloride (Normal Saline) Confirm Administered Dose 100 mls @ as directed .ROUTE .STK-MED ONE Stop: 06/02/18 02:58 Last Admin: 06/02/18 03:15 Dose: 200 mls/hr Iopamidol (Isovue-300 (61%)) 100 ml IV . DIRECTED [facility] Last Admin: 06/01/18 18:18 Dose: 100 ml Norepinephrine Bitartrate (Levophed) Confirm Administered Dose 4 mg .ROUTE .STK- MED ONE Stop: 06/01/18 20:03 Piperacillin Sod/Tazobactam Sod (Zosyn) Confirm Administered Dose 4.5 gm .ROUTE .STK-MED ONE Stop: 06/02/18 02:57 Last Admin: 06/02/18 03:17 Dose: Not Given Sodium Chloride (Saline Flush) 10 ml FLUSH ASDIRECTED PRN PRN Reason: Keep Vein Open Last Admin: 06/01/18 16:55 Dose: 10 ml Sodium Chloride (Saline Flush) 10 ml FLUSH ONETIME ONE Stop: 06/01/18 17:51 Last Admin: 06/01/18 18:18 Dose: 10 ml Vancomycin HCl (Vancomycin) 1 gm IV .PHARMACY TO DOSE [facility] Stop: 06/02/18 08:01 - Exam Quality Assessment: Supplemental Oxygen, DVT Prophylaxis General: Alert, Oriented, Cooperative, No Acute Distress Lungs: Clear to Auscultation, Normal Respiratory Effort Cardiovascular: Regular Rate, Regular Rhythm, No Murmurs GI/Abdominal Exam: Soft, Non-Tender, No Organomegaly, No Distention Extremities: Non-Tender, No Pedal Edema Skin: Warm, Dry - Problem List Review Problem List Initiated/Reviewed/Updated: Yes - My Orders Last 24 Hours: My Active Orders 06/01/18 19:58 Resuscitation Status Routine 06/01/18 20:39 Patient Status [ADT] Routine Ambulate [RC] QID BIPAP Adult [RT BiPAP/CPAP] [RC] ASDIRECTED Cardiac Monitoring [RC] Q6H Height and Weight [RC] DAILY Intake and Output [RC] QSHIFT Notify Provider Vital Signs [RC] ASDIRECTED Oxygen Therapy [RC] PRN Peripheral IV Care [RC] . DIRECTED Pulse Oximetry [RC] CONTINUOUS RT Aerosol Therapy [RC] ASDIRECTED Up With Assistance [RC] ASDIRECTED Up to Chair [RC] QID Vital Signs [RC] Q1H Acetaminophen [Tylenol] 650 mg PO Q4H PRN Albuterol [Proventil Neb Soln] 2.5 mg NEB Q4H PRN Norepinephrine [Levophed] 4 mg Dextrose 5% in Water 246 ml IV TITRATE Ondansetron [Zofran] 4 mg IV Q4H PRN Polyethylene Glycol 3350 [MiraLAX] 17 gm PO DAILY PRN Sodium Chloride 0.9% [Saline Flush] 10 ml FLUSH ASDIRECTED PRN Peripheral IV Insertion Adult [OM.PC] Routine 06/01/18 20:45 Nicotine [Habitrol] 21 mg TRDERM DAILY 06/01/18 21:00 Hydrocortisone Sod Succinate [Solu-CORTEF] 100 mg IVPUSH Q8H Pantoprazole [ProTONIX IV] 40 mg IVPUSH Q24H 06/01/18 21:30 Enoxaparin [Lovenox] 40 mg SUBCUT BEDTIME 06/01/18 Dinner Regular Diet [DIET] 06/02/18 01:27 CULTURE RESPIRATORY + SMEAR [RM] Stat 06/02/18 06:37 Dietary Supplements [RC] BIDMEALS 06/02/18 08:00 Vancomycin 2 gm Sodium Chloride 0.9% [Normal Saline] 500 ml IV ONETIME 06/02/18 09:00 Magnesium Oxide 400 mg PO BID Magnesium Sulfate/Water [Magnesium Sulfate 2 GM in Water 50 ML] 2 gm Premix Bag 1 bag IV Q6H 06/02/18 09:15 Lactated Ringers [Ringers, Lactated] 1,000 ml IV ASDIRECTED 06/02/18 10:00 Piperacillin/Tazobactam/Dext [Zosyn in Dextrose Iso-Osmotic] 4.5 gm Premix Bag 1 bag IV Q6H 06/02/18 17:00 LACTIC ACID [CHEM] Stat 06/02/18 20:00 Vancomycin 1.5 gm Sodium Chloride 0.9% [Normal Saline] 250 ml IV Q12H 06/02/18 22:30 Levofloxacin/Dextrose 5%-Water [Levaquin in D5W 750 MG/150 ML] 750 mg Premix Bag 1 bag IV Q24H 06/03/18 05:00 CBC WITH AUTO DIFF [HEME] Timed COMPREHENSIVE METABOLIC PN,CMP [CHEM] Timed MAGNESIUM [CHEM] Timed - Plan Plan:: ASSESSMENT AND PLAN BILATERAL PNEUMONIA WITH SEPSIS-improved and more stable since admission, hypotension is resolved and he is almost off of IV norepinephrine. Blood culture growing gram-positive cocci, final ID and sensitivities are pending. -Blood cultures and sputum cultures pending -LR decrease rate to 75 mL per hour -Taper off of norepinephrine -IV vancomycin added to current antibiotic regimen because of blood culture positive for gram-positive cocci. -IV Zosyn and levofloxacin, pending culture results HYPOXIC RESPIRATORY FAILURE-secondary to bilateral pneumonia and sepsis. Probable component of underlying COPD, [id number] smoking history. Situation has improved through the night with use of noninvasive positive pressure ventilation. Now has adequate oxygenation on supplemental oxygen via nasal cannula. -Supplemental oxygen as needed -Nebulized albuterol -Noninvasive positive pressure ventilation as needed POSSIBLE GALLBLADDER DISEASE-possible gallbladder wall thickening suggested on CT scan and ultrasound. Return to antibiotic therapy should be providing good coverage for cholecystitis. -Surgical consult after he is recovered from pneumonia and sepsis -Current antibiotic therapy should provide adequate coverage for possible gallbladder infection MAINTENANCE ISSUES -DVT prophylaxis; Lovenox 40 mg subcutaneous daily -GI prophylaxis; Protonix 40 mg IV daily -Weiss catheter; not indicated -Nutrition; regular diet -Nicotine dependence; 21 mg nicotinic patch CODE STATUS-FULL CODE ADMISSION STATUS-patient will be admitted to inpatient status, expect at least a 2 night hospital stay for evaluation and management of problems as outlined above. At the time of this admission I do not reasonably expected evaluation and management of this problem will require more than a 96 hour hospital stay. DISPOSITION-anticipate discharge to home after the hospital stay. PRIMARY CARE PROVIDER-
[2018-06-02] MEDS: Piperacillin/Tazobactam/Dext 4.5 GM in Premix Bag 1 BAG IV SCH ×3 (10:53→21:53)
[2018-06-02] MEDS: Acetaminophen 325 MG Tab PO PRN (14:08)
[2018-06-02] MEDS: Pantoprazole 40 MG Vial IVPUSH SCH (21:08)
[2018-06-02] MEDS: Enoxaparin 40 MG/0.4 ML Syringe SUBCUT SCH (21:10)
[2018-06-03] MEDS: Levofloxacin/Dextrose 5%-Water 750 MG in Premix Bag 1 BAG IV SCH ×2 (00:27→22:41)
[2018-06-03] MEDS: Piperacillin/Tazobactam/Dext 4.5 GM in Premix Bag 1 BAG IV SCH ×4 (04:04→22:03)
--- NOTE | 2018-06-03 09:13 | PCM.PN ---
- General Info Date of Service: 06/03/18 Subjective Update: there were no acute events overnight. The patient was weaned off of vasopressors yesterday morning. He did require supplemental oxygen throughout the day and overnight but is off supplemental oxygen this morning. he has an intermittent loose but not productive cough. He feels short of breath with minimal exertion. He has not had any abdominal pain since the day of admission. No nausea. Tolerating diet but appetite has not been great. He has one blood culture that's growing strep pneumo with sensitivities pending. Functional Status: Reports: Pain Controlled, Tolerating Diet - Review of Systems General: Reports: Weakness. Denies: Fever Pulmonary: Reports: Shortness of Breath, Cough Gastrointestinal: Denies: Abdominal Pain - Patient Data Vitals - Most Recent: Last Vital Signs Temp 36.7 C 06/03/18 08:00 Pulse 82 06/03/18 08:00 Resp 18 06/03/18 08:00 BP 128/75 06/03/18 08:00 Pulse Ox 94 L 06/03/18 08:00 Weight - Most Recent: 99.926 kg I&O - Last 24 Hours: Intake & Output 06/02/18 06/03/18 06/03/18 22:59 06:59 14:59 Intake Total 2180 2443 Output Total 1550 1225 680 Balance 630 1218 -680 Lab Results Last 24 Hours: Laboratory Results - last 24 hr 06/02/18 06/03/18 06/03/18 Range/Units 17:05 04:48 04:48 WBC 14.9 H (4.5-11.0) K/uL RBC 4.16 L (4.30-5.90) M/uL Hgb 12.7 (12.0-15.0) g/dL Hct 38.4 L (40.0-54.0) % MCV 92 (80-98) fL MCH 31 (27-31) pg MCHC 33 (32-36) % Plt Count 178 (150-400) K/uL Add Manual Diff Yes Neutrophils % (Manual) 71 H (36-66) % Band Neutrophils % 16 H (5-11) % Lymphocytes % (Manual) 9 L (24-44) % Monocytes % (Manual) 4 (2-6) % Sodium 137 L (140-148) mmol/L Potassium 3.7 (3.6-5.2) mmol/L Chloride 103 (100-108) mmol/L Carbon Dioxide 26 (21-32) mmol/L Anion Gap 11.7 (5.0-14.0) mmol/L BUN 17 (7-18) mg/dL Creatinine 0.9 (0.8-1.3) mg/dL Est Cr Clr Drug Dosing 78.57 mL/min Estimated GFR (MDRD) > 60 (>60) Glucose 101 (74-106) mg/dL Lactic Acid 3.0 H (0.4-2.0) mmol/L Calcium 8.4 L (8.5-10.1) mg/dL Magnesium 2.2 (1.8-2.4) mg/dL Total Bilirubin 0.6 (0.2-1.0) mg/dL AST 30 D (15-37) U/L ALT 23 (12-78) U/L Alkaline Phosphatase 76 (46-116) U/L Total Protein 6.0 L (6.4-8.2) g/dL Albumin 2.1 L (3.4-5.0) g/dL Globulin 3.9 H (2.3-3.5) g/dL Albumin/Globulin Ratio 0.5 L (1.2-2.2) Howard Results Last 24 Hours: Microbiology 06/01/18 16:50 Aerobic Blood Culture - Preliminary Blood - Venous - Iv Start Anaerobic Blood Culture - Preliminary NO GROWTH AFTER 1 DAY 06/02/18 01:27 Gram Stain - Final Sputum - Expectorated Respiratory Culture - Preliminary 06/01/18 17:00 Aerobic Blood Culture - Preliminary Blood - Arm, Right NO GROWTH AFTER 1 DAY Anaerobic Blood Culture - Preliminary NO GROWTH AFTER 1 DAY Med Orders - Current: Current Medications Acetaminophen (Tylenol) 650 mg PO Q4H PRN PRN Reason: Pain (Mild 1-3)/fever Last Admin: 06/02/18 14:08 Dose: 650 mg Albuterol (Proventil Neb Soln) 2.5 mg NEB Q4H PRN PRN Reason: Shortness Of Breath/wheezing Enoxaparin Sodium (Lovenox) 40 mg SUBCUT BEDTIME [facility] Last Admin: 06/02/18 21:10 Dose: 40 mg Levofloxacin/Dextrose 750 mg/ (Premix) 150 mls @ 100 mls/hr IV Q24H [facility] Last Admin: 06/03/18 00:27 Dose: 100 mls/hr Piperacillin/Tazobactam/ (Dextrose 4.5 gm/ Premix) 100 mls @ 200 mls/hr IV Q6H [facility] Last Admin: 06/03/18 04:04 Dose: 200 mls/hr Vancomycin HCl 1.5 gm/ Sodium (Chloride) 250 mls @ 167 mls/hr IV Q12H [facility] Last Admin: 06/03/18 08:03 Dose: 167 mls/hr Lactated Ringer's (Ringers, Lactated) 1,000 mls @ 25 mls/hr IV ASDIRECTED [facility] Magnesium Oxide (Magnesium Oxide) 400 mg PO BID [facility] Last Admin: 06/02/18 21:09 Dose: 400 mg Nicotine (Habitrol) 21 mg TRDERM DAILY [facility] Last Admin: 06/02/18 08:03 Dose: Not Given Ondansetron HCl (Zofran) 4 mg IV Q4H PRN PRN Reason: Nausea/Vomiting Pantoprazole Sodium (Protonix) 40 mg PO BEDTIME [facility] Polyethylene Glycol (Miralax) 17 gm PO DAILY PRN PRN Reason: Constipation Sodium Chloride (Saline Flush) 10 ml FLUSH ASDIRECTED PRN PRN Reason: Keep Vein Open Discontinued Medications Hydrocortisone Sodium Succinate (Solu-Cortef) 100 mg IVPUSH Q8H [facility] Stop: 06/02/18 13:01 Last Admin: 06/02/18 12:20 Dose: 100 mg Cefepime HCl 2 gm/ Sodium (Chloride) 50 mls @ 100 mls/hr IV STAT ONE Stop: 06/01/18 17:08 Last Admin: 06/01/18 16:55 Dose: 100 mls/hr Lactated Ringer's (Ringers, Lactated) 1,000 mls @ 999 mls/hr IV BOLUS ONE Stop: 06/01/18 17:43 Last Admin: 06/01/18 16:45 Dose: 999 mls/hr Metronidazole 500 mg/ Premix 100 mls @ 100 mls/hr IV ONETIME ONE Stop: 06/01/18 18:33 Last Admin: 06/01/18 17:49 Dose: 100 mls/hr Lactated Ringer's (Ringers, Lactated) 1,000 mls @ 999 mls/hr IV BOLUS [facility] Last Admin: 06/01/18 17:50 Dose: 999 mls/hr Sodium Chloride (Normal Saline) 80 mls @ 3.5 mls/sec IV ONETIME ONE Stop: 06/01/18 17:51 Last Admin: 06/01/18 18:18 Dose: 3 mls/sec Azithromycin 500 mg/ Sodium (Chloride) 250 mls @ 250 mls/hr IV ONETIME ONE Stop: 06/01/18 19:40 Last Admin: 06/01/18 19:06 Dose: 250 mls/hr Lactated Ringer's (Ringers, Lactated) 1,000 mls @ 500 mls/hr IV BOLUS ONE Stop: 06/01/18 21:13 Last Admin: 06/01/18 19:18 Dose: 500 mls/hr Dextrose/Water (Dextrose 5% In Water) Confirm Administered Dose 250 mls @ as directed .ROUTE .STK-MED ONE Stop: 06/01/18 20:03 Last Admin: 06/03/18 07:41 Dose: Not Given Lactated Ringer's (Ringers, Lactated) 1,000 mls @ 125 mls/hr IV ASDIRECTED [facility] Last Admin: 06/02/18 05:32 Dose: 125 mls/hr Norepinephrine Bitartrate 4 mg (/ Dextrose/Water) 250 mls @ 7.5 mls/hr IV TITRATE [facility]; Protocol Last Titration: 06/02/18 08:15 Dose: 2 mcg/min, 7.5 mls/hr Piperacillin Sod/Tazobactam (Sod 4.5 gm/ Sodium Chloride) 100 mls @ 200 mls/hr IV Q6H [facility] Last Admin: 06/02/18 03:14 Dose: 200 mls/hr Levofloxacin/Dextrose 750 mg/ (Premix) 150 mls @ 100 mls/hr IV Q48H [facility] Last Admin: 06/01/18 22:06 Dose: 100 mls/hr Sodium Chloride (Normal Saline) Confirm Administered Dose 100 mls @ as directed .ROUTE .STK-MED ONE Stop: 06/01/18 21:38 Last Admin: 06/01/18 21:49 Dose: 100 mls/hr Sodium Chloride (Normal Saline) Confirm Administered Dose 100 mls @ as directed .ROUTE .STK-MED ONE Stop: 06/02/18 02:58 Last Admin: 06/02/18 03:15 Dose: 200 mls/hr Vancomycin HCl 2 gm/ Sodium (Chloride) 500 mls @ 250 mls/hr IV ONETIME ONE Stop: 06/02/18 09:59 Last Admin: 06/02/18 08:04 Dose: 250 mls/hr Magnesium Sulfate 2 gm/ Premix 50 mls @ 25 mls/hr IV Q6H [facility] Stop: 06/02/18 22:59 Last Admin: 06/02/18 21:09 Dose: 25 mls/hr Lactated Ringer's (Ringers, Lactated) 1,000 mls @ 75 mls/hr IV ASDIRECTED [facility] Last Admin: 06/03/18 06:07 Dose: 75 mls/hr Iopamidol (Isovue-300 (61%)) 100 ml IV . DIRECTED [facility] Last Admin: 06/01/18 18:18 Dose: 100 ml Norepinephrine Bitartrate (Levophed) Confirm Administered Dose 4 mg .ROUTE .STK- MED ONE Stop: 06/01/18 20:03 Last Admin: 06/03/18 07:42 Dose: Not Given Pantoprazole Sodium (Protonix Iv) 40 mg IVPUSH Q24H [facility] Last Admin: 06/02/18 21:08 Dose: 40 mg Piperacillin Sod/Tazobactam Sod (Zosyn) Confirm Administered Dose 4.5 gm .ROUTE .STK-MED ONE Stop: 06/02/18 02:57 Last Admin: 06/02/18 03:17 Dose: Not Given Sodium Chloride (Saline Flush) 10 ml FLUSH ASDIRECTED PRN PRN Reason: Keep Vein Open Last Admin: 06/01/18 16:55 Dose: 10 ml Sodium Chloride (Saline Flush) 10 ml FLUSH ONETIME ONE Stop: 06/01/18 17:51 Last Admin: 06/01/18 18:18 Dose: 10 ml Vancomycin HCl (Vancomycin) 1 gm IV .PHARMACY TO DOSE [facility] Stop: 06/02/18 08:01 - Exam Quality Assessment: No: Supplemental Oxygen General: Alert, Oriented, Cooperative, No Acute Distress Lungs: Clear to Auscultation, Normal Respiratory Effort, Decreased Breath Sounds (right lung base). No: Wheezing Cardiovascular: Regular Rate, Regular Rhythm GI/Abdominal Exam: Soft, No Distention Extremities: No Pedal Edema. No: Increased Warmth Skin: Warm, Dry Psy/Mental Status: Alert, Normal Affect - Problem List Review Problem List Initiated/Reviewed/Updated: Yes - My Orders Last 24 Hours: My Active Orders 06/03/18 09:10 Discontinue Telemetry Monitoring [Cardiac Monitoring Discontinue] [RC] Click to Edit 06/03/18 09:11 Transfer Patient (Change bed) [ADT] Routine 06/03/18 09:15 Lactated Ringers [Ringers, Lactated] 1,000 ml IV ASDIRECTED 06/03/18 21:00 Pantoprazole [ProTONIX] 40 mg PO BEDTIME 06/04/18 05:00 BASIC METABOLIC PANEL,BMP [CHEM] Timed CBC W/O DIFF,HEMOGRAM [HEME] Timed (1) - Plan Plan:: ASSESSMENT AND PLAN BILATERAL STREP PNEUMO PNEUMONIA WITH SEPSIS - significant improvement in the past 24 hours. He has been off vasopressors and is off oxygen this morning but did require it overnight. One blood culture growing Streptococcus pneumoniae with sensitivities pending. Blood pressures have been stable and he has not been tachycardic. -follow-up cultures -LR at [facility] - continue broad-spectrum antibiotics until sensitivities are available HYPOXIC RESPIRATORY FAILURE - secondary to bilateral pneumonia and sepsis. Probable component of underlying COPD, [id number] smoking history. off oxygen this morning but did require an overnight. Has not needed noninvasive ventilation since the night of admission. -Supplemental oxygen as needed -Nebulized albuterol POSSIBLE GALLBLADDER DISEASE - possible gallbladder wall thickening suggested on CT scan and ultrasound. Return to antibiotic therapy should be providing good coverage for cholecystitis. no abdominal pain since he was started on antibiotics. -Surgical consult after he is recovered from pneumonia and sepsis -Current antibiotic therapy should provide adequate coverage for possible gallbladder infection TOBACCO DEPENDENCE - -Nicotine dependence; 21 mg nicotinic patch MAINTENANCE ISSUES -DVT prophylaxis; Lovenox 40 mg subcutaneous daily -GI prophylaxis; pantoprazole -Nutrition; regular diet DISPOSITION - anticipate discharge to home after the hospital stay. he will be transferred out of the intensive care unit today. I would anticipate discharged home in one or 2 days. Zacarias Luna M.D.
[2018-06-03] MEDS ORDERED: Lactated Ringers 1,000 ML IV SCH (09:15)
[2018-06-03] MEDS: Magnesium Oxide 400 MG Tab PO SCH ×2 (09:18→20:32)
[2018-06-03] MEDS: Nicotine 21 MG/24 Hr Patch TRDERM SCH (09:18)
[2018-06-03] MEDS: Acetaminophen 325 MG Tab PO PRN ×2 (16:27→20:32)
[2018-06-03] MEDS: Enoxaparin 40 MG/0.4 ML Syringe SUBCUT SCH (20:32)
[2018-06-03] MEDS ORDERED: Pantoprazole 40 MG Tab.CR PO SCH (21:00)
[2018-06-04] MEDS ORDERED: LORazepam 1 MG Tab PO PRN (01:14)
[2018-06-04] MEDS: Piperacillin/Tazobactam/Dext 4.5 GM in Premix Bag 1 BAG IV SCH (03:22)
[2018-06-04] MEDS: Nicotine 21 MG/24 Hr Patch TRDERM SCH (08:47)
[2018-06-04] MEDS: Magnesium Oxide 400 MG Tab PO SCH (08:49)
[2018-06-04] MEDS ORDERED: Potassium Chloride 20 MEQ Tab.ER PO ONE (09:00)
--- NOTE | 2018-06-04 09:17 | PCM.DCSUM1 ---
Discharge Summary - Hospital Course Brief History: 53-year-old male with history of tobacco dependence who presented with fever, cough and shortness of breath. He was admitted for management of bilateral pneumonia with sepsis and hypoxic respiratory failure. Diagnosis: Stroke: No - Discharge Data Discharge Date: 06/04/18 Discharge Disposition: Home, Self-Care 01 Condition: Good - Discharge Diagnosis/Problem(s) (1) Streptococcus pneumoniae pneumonia SNOMED Code(s): 496233282 ICD Code: J13 - PNEUMONIA DUE TO STREPTOCOCCUS PNEUMONIAE Status: Acute Current Visit: Yes Qualifiers: Laterality: bilateral Lung location: unspecified part of lung Qualified Code(s): J13 - Pneumonia due to Streptococcus pneumoniae (2) Septic shock SNOMED Code(s): 12467248 ICD Code: A41.9 - SEPSIS, UNSPECIFIED ORGANISM; R65.21 - SEVERE SEPSIS WITH SEPTIC SHOCK Status: Acute Current Visit: Yes (3) Acute hypoxemic respiratory failure SNOMED Code(s): 038593836 ICD Code: J96.01 - ACUTE RESPIRATORY FAILURE WITH HYPOXIA Status: Acute Current Visit: Yes (4) Tobacco use disorder SNOMED Code(s): 979034196 ICD Code: F17.200 - NICOTINE DEPENDENCE, UNSPECIFIED, UNCOMPLICATED Status : Chronic Current Visit: No - Patient Summary/Data Hospital Course: Sven presented to the emergency room with cough, shortness of breath and weakness. Symptoms have progressed over the past 2 weeks and there was some associated right upper quadrant pain. Workup in the emergency room was suggestive of bilateral pneumonia with the right lower lobe involved most impressively as well as hypoxia and sepsis. With his right upper quadrant pain there was some concern he may have gallbladder disease in both the CT scan and ultrasound showed mild gallbladder thickening. He was started on broad-spectrum antibiotics as well as IV fluids and admitted to the intensive care unit. Throughout the evening following admission his blood pressure decline despite aggressive volume resuscitation. He was started on norepinephrine and this was titrated throughout the evening. His respiratory status also declined throughout the evening and he required noninvasive ventilation. He remained tenuous throughout the night but by the morning after admission was starting to improve. He was able to be weaned off the noninvasive ventilation and the norepinephrine. The day after admission one of his blood cultures returned positive for gram-positive cocci. Vancomycin was added to his antibiotic regimen at this time. Throughout the next 24 hours he showed steady improvement and by the second morning after admission he was off supplemental oxygen. He has not had any fevers. His white count has steadily trended down. His blood culture did grow out Streptococcus pneumoniae which was pansensitive. He has remained afebrile and has not required any oxygen. Diet has improved. He has been up and walking around. From a pneumonia standpoint he is safe for discharge at this time. He will be on levofloxacin for 5 more days to complete a total of 8 days. Regarding the right upper quadrant abdominal pain, he has not had any pain since admission. I suspect that this was related to the right lower lobe consolidation noted on the CT scan. It was noted that he had a thickened gallbladder wall but has not had any pain or difficulty during the hospital stay. If he does have difficulties after hospital discharge he can follow-up with one of the surgeons to consider cholecystectomy but I don't believe he has cholecystitis at this time. The patient is also a long-time smoker. I strongly encouraged him to quit smoking. He has not had cigarettes in several days.He will be following up with his primary care to discuss further efforts for cessation. - Patient Instructions Diet: Regular Diet as Tolerated Activity: As Tolerated Driving: May Drive Today Showering/Bathing: May Shower Notify Provider of: Fever, Increased Pain, Nausea and/or Vomiting Other/Special Instructions: 1. You were in the hospital for management of a bilateral pneumonia caused by a bacteria called strep pneumoniae. Your pneumonia has been improving with antibiotic therapy. I do recommend 5 additional doses of antibiotics. You should take levofloxacin 750 mg once daily at bedtime. Your next dose is due tonight. 2. I would strongly encourage you to quit smoking. Ongoing tobacco use increases your risk of further damage to your lungs, increased risk for a variety of cancers as well as increased risk of heart disease. We did discover on the CT scan that you have emphysema which is a type of COPD. Quitting smoking now will help to prevent further damage to the lungs. 3. Please seek medical attention if fever greater than 101, significant increase in shortness of breath or if you have significant blood in your sputum. - Discharge Plan *PRESCRIPTION DRUG MONITORING PROGRAM REVIEWED*: Not Applicable *COPY OF PRESCRIPTION DRUG MONITORING REPORT IN PATIENT JESSIE: Not Applicable Prescriptions/Med Rec: Levofloxacin 750 mg PO BEDTIME #5 tablet Home Medications: Home Meds Levofloxacin 750 mg PO BEDTIME #5 tablet 06/04/18 [Rx] Oxygen Therapy Mode: Room Air Patient Handouts: Levofloxacin tablets, Community-Acquired Pneumonia, Adult, [id number] Referrals: PCP,None [Primary Care Provider] - (f/u with primary care in one week - f/u hospital stay for pneumonia) - Discharge Summary/Plan Comment DC Time >30 min.: No - Patient Data Vitals - Most Recent: Last Vital Signs Temp 36.7 C 06/04/18 07:16 Pulse 89 06/04/18 07:16 Resp 20 06/04/18 07:16 BP 114/66 06/04/18 07:16 Pulse Ox 94 L 06/04/18 07:16 Weight - Most Recent: 100 kg I&O - Last 24 hours: Intake & Output 06/03/18 06/04/18 06/04/18 22:59 06:59 14:59 Intake Total 2195 750 Output Total 1970 Balance 225 750 Lab Results - Last 24 hrs: Laboratory Results - last 24 hr 06/04/18 06/04/18 Range/Units 04:35 04:35 WBC 13.7 H (4.5-11.0) K/uL RBC 4.53 (4.30-5.90) M/uL Hgb 13.5 (12.0-15.0) g/dL Hct 40.9 (40.0-54.0) % MCV 90 (80-98) fL MCH 30 (27-31) pg MCHC 33 (32-36) % Plt Count 242 (150-400) K/uL Sodium 139 L (140-148) mmol/L Potassium 3.5 L (3.6-5.2) mmol/L Chloride 106 (100-108) mmol/L Carbon Dioxide 24 (21-32) mmol/L Anion Gap 12.5 (5.0-14.0) mmol/L BUN 13 (7-18) mg/dL Creatinine 0.9 (0.8-1.3) mg/dL Est Cr Clr Drug Dosing 79.10 mL/min Estimated GFR (MDRD) > 60 (>60) Glucose 96 (74-106) mg/dL Calcium 8.6 (8.5-10.1) mg/dL MO Results - Last 24 hrs: Microbiology 06/01/18 16:50 Aerobic Blood Culture - Final Blood - Venous - Iv Start Streptococcus Pneumoniae Anaerobic Blood Culture - Preliminary NO GROWTH AFTER 2 DAYS 06/01/18 17:00 Aerobic Blood Culture - Preliminary Blood - Arm, Right NO GROWTH AFTER 2 DAYS Anaerobic Blood Culture - Preliminary NO GROWTH AFTER 2 DAYS 06/02/18 01:27 Gram Stain - Final Sputum - Expectorated Respiratory Culture - Final Yeast Med Orders - Current: Current Medications Acetaminophen (Tylenol) 650 mg PO Q4H PRN PRN Reason: Pain (Mild 1-3)/fever Last Admin: 06/03/18 20:32 Dose: 650 mg Albuterol (Proventil Neb Soln) 2.5 mg NEB Q4H PRN PRN Reason: Shortness Of Breath/wheezing Enoxaparin Sodium (Lovenox) 40 mg SUBCUT BEDTIME [facility] Last Admin: 06/03/18 20:32 Dose: 40 mg Levofloxacin/Dextrose 750 mg/ (Premix) 150 mls @ 100 mls/hr IV Q24H [facility] Last Admin: 06/03/18 22:41 Dose: 100 mls/hr Lactated Ringer's (Ringers, Lactated) 1,000 mls @ 25 mls/hr IV ASDIRECTED [facility] Lorazepam (Ativan) 1 mg PO Q6H PRN PRN Reason: Anxiety Last Admin: 06/04/18 01:24 Dose: 1 mg Magnesium Oxide (Magnesium Oxide) 400 mg PO BID [facility] Last Admin: 06/04/18 08:49 Dose: 400 mg Nicotine (Habitrol) 21 mg TRDERM DAILY [facility] Last Admin: 06/04/18 08:47 Dose: 21 mg Ondansetron HCl (Zofran) 4 mg IV Q4H PRN PRN Reason: Nausea/Vomiting Pantoprazole Sodium (Protonix) 40 mg PO BEDTIME [facility] Last Admin: 06/03/18 20:32 Dose: 40 mg Polyethylene Glycol (Miralax) 17 gm PO DAILY PRN PRN Reason: Constipation Sodium Chloride (Saline Flush) 10 ml FLUSH ASDIRECTED PRN PRN Reason: Keep Vein Open Discontinued Medications Hydrocortisone Sodium Succinate (Solu-Cortef) 100 mg IVPUSH Q8H [facility] Stop: 06/02/18 13:01 Last Admin: 06/02/18 12:20 Dose: 100 mg Cefepime HCl 2 gm/ Sodium (Chloride) 50 mls @ 100 mls/hr IV STAT ONE Stop: 06/01/18 17:08 Last Admin: 06/01/18 16:55 Dose: 100 mls/hr Lactated Ringer's (Ringers, Lactated) 1,000 mls @ 999 mls/hr IV BOLUS ONE Stop: 06/01/18 17:43 Last Admin: 06/01/18 16:45 Dose: 999 mls/hr Metronidazole 500 mg/ Premix 100 mls @ 100 mls/hr IV ONETIME ONE Stop: 06/01/18 18:33 Last Admin: 06/01/18 17:49 Dose: 100 mls/hr Lactated Ringer's (Ringers, Lactated) 1,000 mls @ 999 mls/hr IV BOLUS [facility] Last Admin: 06/01/18 17:50 Dose: 999 mls/hr Sodium Chloride (Normal Saline) 80 mls @ 3.5 mls/sec IV ONETIME ONE Stop: 06/01/18 17:51 Last Admin: 06/01/18 18:18 Dose: 3 mls/sec Azithromycin 500 mg/ Sodium (Chloride) 250 mls @ 250 mls/hr IV ONETIME ONE Stop: 06/01/18 19:40 Last Admin: 06/01/18 19:06 Dose: 250 mls/hr Lactated Ringer's (Ringers, Lactated) 1,000 mls @ 500 mls/hr IV BOLUS ONE Stop: 06/01/18 21:13 Last Admin: 06/01/18 19:18 Dose: 500 mls/hr Dextrose/Water (Dextrose 5% In Water) Confirm Administered Dose 250 mls @ as directed .ROUTE .STK-MED ONE Stop: 06/01/18 20:03 Last Admin: 06/03/18 07:41 Dose: Not Given Lactated Ringer's (Ringers, Lactated) 1,000 mls @ 125 mls/hr IV ASDIRECTED [facility] Last Admin: 06/02/18 05:32 Dose: 125 mls/hr Norepinephrine Bitartrate 4 mg (/ Dextrose/Water) 250 mls @ 7.5 mls/hr IV TITRATE [facility]; Protocol Last Titration: 06/02/18 08:15 Dose: 2 mcg/min, 7.5 mls/hr Piperacillin Sod/Tazobactam (Sod 4.5 gm/ Sodium Chloride) 100 mls @ 200 mls/hr IV Q6H [facility] Last Admin: 06/02/18 03:14 Dose: 200 mls/hr Levofloxacin/Dextrose 750 mg/ (Premix) 150 mls @ 100 mls/hr IV Q48H [facility] Last Admin: 06/01/18 22:06 Dose: 100 mls/hr Sodium Chloride (Normal Saline) Confirm Administered Dose 100 mls @ as directed .ROUTE .STK-MED ONE Stop: 06/01/18 21:38 Last Admin: 06/01/18 21:49 Dose: 100 mls/hr Sodium Chloride (Normal Saline) Confirm Administered Dose 100 mls @ as directed .ROUTE .STK-MED ONE Stop: 06/02/18 02:58 Last Admin: 06/02/18 03:15 Dose: 200 mls/hr Piperacillin/Tazobactam/ (Dextrose 4.5 gm/ Premix) 100 mls @ 200 mls/hr IV Q6H [facility] Last Admin: 06/04/18 03:22 Dose: 200 mls/hr Vancomycin HCl 2 gm/ Sodium (Chloride) 500 mls @ 250 mls/hr IV ONETIME ONE Stop: 06/02/18 09:59 Last Admin: 06/02/18 08:04 Dose: 250 mls/hr Vancomycin HCl 1.5 gm/ Sodium (Chloride) 250 mls @ 167 mls/hr IV Q12H [facility] Last Admin: 06/04/18 09:03 Dose: Not Given Magnesium Sulfate 2 gm/ Premix 50 mls @ 25 mls/hr IV Q6H [facility] Stop: 06/02/18 22:59 Last Admin: 06/02/18 21:09 Dose: 25 mls/hr Lactated Ringer's (Ringers, Lactated) 1,000 mls @ 75 mls/hr IV ASDIRECTED [facility] Last Admin: 06/03/18 06:07 Dose: 75 mls/hr Iopamidol (Isovue-300 (61%)) 100 ml IV . DIRECTED [facility] Last Admin: 06/01/18 18:18 Dose: 100 ml Norepinephrine Bitartrate (Levophed) Confirm Administered Dose 4 mg .ROUTE .STK- MED ONE Stop: 06/01/18 20:03 Last Admin: 06/03/18 07:42 Dose: Not Given Pantoprazole Sodium (Protonix Iv) 40 mg IVPUSH Q24H [facility] Last Admin: 06/02/18 21:08 Dose: 40 mg Piperacillin Sod/Tazobactam Sod (Zosyn) Confirm Administered Dose 4.5 gm .ROUTE .STK-MED ONE Stop: 06/02/18 02:57 Last Admin: 06/02/18 03:17 Dose: Not Given Potassium Chloride (Klor-Con M20) 40 meq PO ONETIME ONE Stop: 06/04/18 09:01 Last Admin: 06/04/18 08:50 Dose: 40 meq Sodium Chloride (Saline Flush) 10 ml FLUSH ASDIRECTED PRN PRN Reason: Keep Vein Open Last Admin: 06/01/18 16:55 Dose: 10 ml Sodium Chloride (Saline Flush) 10 ml FLUSH ONETIME ONE Stop: 06/01/18 17:51 Last Admin: 06/01/18 18:18 Dose: 10 ml Vancomycin HCl (Vancomycin) 1 gm IV .PHARMACY TO DOSE [facility] Stop: 06/02/18 08:01 - Exam Quality Assessment: Denies: Supplemental Oxygen General: Reports: Alert, Oriented, Cooperative, No Acute Distress Lungs: Reports: Normal Respiratory Effort GI/Abdominal Exam: Soft, No Distention Psy/Mental Status: Reports: Alert, Normal Affect
== END 2018-06-04 11:03 | disposition home or self-care (01) | DRG 871 ==
LOC: JP.ED 16:34 → JP.ICU 19:56 → JP.MS 06-03 20:49
PROVIDERS: ADMIT Hospitalist; ATTEND Internal Medicine
PROC: 5A0935Z Assistance with Respiratory Ventilation, Less than 24 Consecutive Hours (ICD-10-PCS; principal; 2018-06-01)
DX: A40.3 Sepsis due to Streptococcus pneumoniae (principal); J13 Pneumonia due to Streptococcus pneumoniae; R65.21 Severe sepsis with septic shock; J96.01 Acute respiratory failure with hypoxia; F17.210 Nicotine dependence, cigarettes, uncomplicated; H54.7 Unspecified visual loss; J43.9 Emphysema, unspecified
CPT/HCPCS: 36415; 36600; 71045; 71260; 74177; 76705; 80048; 80053; 81001; 82803; 83605; 83735; 84484; 85025; 85027; 87040; 87070; 87077; 87184; 87205; 87804; 87804-59; 94660; 96361; 96365; 96367; 96375; 99291-25; A9270-GY; C9113; J0456; J0692; J1650; J1720; J1956; J2543; J3370; J3475; J3490; J7030; J7040; J7050; J7060; J7120; Q9967

== ENCOUNTER 2024-08-07 02:37 | Emergency (ER) | payer MEDICAID ==
[2024-08-07 02:58] LABS: BASOPHILS ABSOLUTE AUTO 0.07 K/uL (0.00-0.10); BASOPHILS PERCENT AUTO 0.5 % (0.1-1.3); EOSINOPHILS PERCENT AUTO 0.8 % (0.0-5.4); HEMATOCRIT 49.1 % (38.4-49.7); HEMOGLOBIN 16.8 g/dL (12.9-16.9); IMMATURE GRAN ABSOLUTE AUTO 0.05 K/uL (0.00-0.23); IMMATURE GRAN PERCENT AUTO 0.4 % (0.0-0.7); LYMPHOCYTES ABSOLUTE AUTO 1.56 K/uL (0.8-3.3); LYMPHOCYTES PERCENT AUTO 11.9 % (11.4-47.7); MEAN CORPUSCULAR HEMOGLOBIN 32.2 pg (31.6-35.5); MEAN CORPUSCULAR HGB CONC 34.2 g/dL (31.6-35.5); MEAN CORPUSCULAR VOLUME 94.1 fL (81.4-99.0); MONOCYTES ABSOLUTE AUTO 1.26 K/uL (0.20-0.90); MONOCYTES PERCENT AUTO 9.6 % (3.3-12.6); NEUTROPHILS ABSOLUTE AUTO 10.05 K/uL (1.0-7.6); NEUTROPHILS PERCENT AUTO 76.8 % (40.0-78.1); PLATELET COUNT,PLT 233 K/uL (130-375); RED BLOOD CELL COUNT 5.22 M/uL (4.14-5.76); WHITE BLOOD CELL COUNT,WBC 13.1 K/uL (3.2-11.0)
[2024-08-07] MEDS: HYDROmorphone 1 MG/ML Syringe IVPUSH ONE (03:01)
[2024-08-07 03:20] LABS: A/G RATIO 0.8 (1.2-2.2); ALANINE AMINOTRANSFERASE,ALT 22 U/L (12-78); ALBUMIN 3.2 g/dL (3.4-5.0); ALKALINE PHOSPHATASE 111 U/L (46-116); ASPARTATE AMNIOTRANSFERASE,AST 23 U/L (15-37); BILIRUBIN TOTAL 1.3 mg/dL (0.2-1.0); BLOOD UREA NITROGEN,BUN 16 mg/dL (7-18); CALCIUM 8.4 mg/dL (8.5-10.1); CARBON DIOXIDE,CO2 24 mmol/L (21-32); CHLORIDE,CL 104 mmol/L (100-108); CREATININE 1.6 mg/dL (0.8-1.3); EST CRCL DRUG DOSING (CG) 52.29 mL/min; ESTIMATED GFR 49 mL/min (>60); GLUCOSE RANDOM 111 mg/dL (74-106); SODIUM,NA 138 mmol/L (140-148); TROPONIN I HIGH SENSITIVITY 9.5 pg/mL (<=60.3)
[2024-08-07] MEDS: Sodium Chloride 0.9% 1,000 ML IV STA (03:45)
[2024-08-07] MEDS: Sodium Chloride 0.9% 10 ML Syringe FLUSH PRN (03:48)
[2024-08-07] MEDS: Iopamidol 612 MG/ML 100 ML Bottle IV SCH (03:48)
[2024-08-07] MEDS: Sodium Chloride 0.9% 100 ML IV SCH (03:48)
[2024-08-07] MEDS: Ketorolac 30 MG/ML SDV IVPUSH ONE (04:38)
[2024-08-07 06:06] LABS: APPEARANCE,URINE CLEAR (CLEAR); BILIRUBIN,URINE NEGATIVE (NEGATIVE); COLOR,URINE YELLOW (YELLOW); GLUCOSE,URINE NEGATIVE (NEGATIVE); KETONES,URINE NEGATIVE (NEGATIVE); LEUKOCYTE ESTERASE,URINE NEGATIVE (NEGATIVE); NITRITE,URINE NEGATIVE (NEGATIVE); OCCULT BLOOD,URINE SMALL (NEGATIVE); PROTEIN,URINE NEGATIVE (NEGATIVE); UROBILINOGEN,URINE 0.2 EU/dL (0.2-1.0)
[2024-08-07 06:10] LABS: AMORPHOUS SEDIMENT,URINE NOT SEEN; BACTERIA,URINE FEW; EPITHELIAL CELLS,URINE RARE; MUCUS,URINE NOT SEEN; RBC,URINE 0-5 (0-5); WBC,URINE 0-5 (0-5)
== END 2024-08-07 06:20 | disposition home or self-care (01) ==
LOC: JP.ED 02:37
DX: N13.2 Hydronephrosis with renal and ureteral calculous obstruction (principal); Z79.899 Other long term (current) drug therapy; Z79.891 Long term (current) use of opiate analgesic
CPT/HCPCS: 36415; 74177; 80053; 81001; 83605; 83690; 84484; 85025; 96361; 96374; 96375; 99285; J1171; J1885; J7030; Q9967